=== PATIENT | male | born 1950 | race Caucasian/White ===

== ENCOUNTER 2022-07-20 23:20 | Observation (INO) | payer OTHER ==
[~2022-07-20] VITALS: Ht 185.4 cm; Wt 94.5 kg
[2022-07-21 13:40] LABS: BASOPHILS ABSOLUTE AUTO 0.02 K/mm3 (0.00-0.23); BASOPHILS PERCENT AUTO 0 % (0-2); EOSINOPHILS ABSOLUTE AUTO 0.06 K/mm3 (0.00-0.68); EOSINOPHILS PERCENT AUTO 1 % (0-6); Hematocrit 39.6 % (37.0-53.0); Hemoglobin 13.1 g/dL (13.5-17.5); IMMATURE GRAN ABSOLUTE AUTO 0.03 K/mm3 (0.00-0.10); IMMATURE GRAN PERCENT AUTO 0 % (0-1); LYMPHOCYTES ABSOLUTE AUTO 2.06 K/mm3 (0.84-5.20); LYMPHOCYTES PERCENT AUTO 20 % (21-46); MONOCYTES ABSOLUTE AUTO 1.07 K/mm3 (0.16-1.47); MONOCYTES PERCENT AUTO 10 % (4-13); Mean Corpuscular HGB 30.2 pg (26.0-34.0); Mean Corpuscular HGB Conc 33.1 g/dL (31.5-36.5); Mean Corpuscular Volume 91 fL (80-100); Mean Platelet Volume 10.1 fL (9.1-12.4); NEUTROPHILS ABSOLUTE AUTO 7.04 K/mm3 (1.96-9.15); NEUTROPHILS PERCENT AUTO 69 % (41-73); Platelet Count 249 K/mm3 (150-400); RDW Coefficient Variation 13.1 % (11.7-14.2); RDW Standard Deviation 44.4 fL (35.1-46.3); Red Blood Cell Count 4.34 M/mm3 (4.30-5.90); White Blood Cell Count 10.28 K/mm3 (4.00-11.30)
--- NOTE | 2022-07-21 18:42 | NUR ---
Received patient at 1530. Pt axox4. Pt states his pain is not as bad as it was yesterday but seem to be getting better. Admission completed on patient. Will continue to monitor patient. Vital signs are stable, but a little high because of the transfer and pain.
--- NOTE | 2022-07-22 04:41 | NUR ---
SPINDLE SETTER SUMMARY NO ACUTE EVENTS. PT A/OX4. REPORTS PAIN AT REST IS 3-4 CONSISTANTLY AND INCREASED WITH SLIGHT MOVEMENT. ON BEDREST T/O THE NIGHT. RCVD SCHEDULED PAIN MEDS AND 1X DOSE OF PO PRN PAIN MED. REPORTS NUMBNESS/COMPLETE LOSS OF FEELING IN LOWER RIGHT FOOT. ON CONT PULSE OX; SOME BRIEF EPISODES OF DROPPING DONW TO UPPER 80'S. ABLE TO MAKE NEEDS KNOWN; CALL LIGHT IN REACH.
--- NOTE | 2022-07-22 17:37 | NUR ---
SHIFT SUMMARY- PT VSS. PT PAIN TOLERATABLE BUT PRESENT. PT REPORTS SOME IMPROVEMENT WITH PAIN, WORKED WITH PT. DRESSING CHANGE AT SPINAL INCISION, SEROUS FLUID ON GAUZE PAD. FAMILY AT BEDSIDE. APPETITE GOOD. WILL CONTINUE TO MONITOR. CALL LIGHT IN REACH.
--- NOTE | 2022-07-22 17:44 | NUR ---
PT ALSEEP WHEN I ATTEMPT TO MAKE A VISIT. RN REPORTS PT PAIN HAS BEEN BETTER MANAGED THIS AFTERNOON, PALLIATIVE CARE WILL CONT TO FOLLOW AND PROVIDE SUPPORT.
--- NOTE | 2022-07-23 05:07 | NUR ---
EVENTS AND PROMOTIONS ASSISTANT SUMMARY: A&Ox4. PLEASANT AND COOPERATIVE WITH CARE. CALLS APPROPRIATELY AND ABLE TO ADVOCATE NEEDS EFFECTIVELY. PAIN MANAGED WITH ROUTINE DILAUDID, APAP AND NAPROXEN. DID NOT REQUIRE ANY IV MEDS FOR BT PAIN. LAST BM PRIOR TO SURGERY; SENNA ADMINISTERED WITH HS MEDS. VOIDING WITHOUT DIFFICULTY AND REPORTS INCREASED SENSATION IN LEs; STILL WEAKER ON RLE THAN LLE. ANTICIPATE DC HOME TOMORROW, IF PAIN MANAGED WITH PO MEDS ONLY. NO ACUTE CONCERNS T/O THE NIGHT. WILL REPORT TO ONCOMING RN.
--- NOTE | 2022-07-23 17:25 | NUR ---
Received Report from ongoing nurse. Pt axox4. Pt is having constant stabbing pain in the lower back. making his rounds at bedside. MR of lumbar with no contrast placed. MRI results received by physician will be transferring patient to [facility] in [place]. Gave report to nurse MARI Bello. Pt will go to surgery right away and will go to bed 30 once done. Pt and made aware. EMS will arrive at 1800.
== END 2022-07-23 18:30 | disposition short-term general hospital (02) ==
LOC: ER 23:20 → ERHOLD 23:21 → MEDS 07-21 15:25
PROVIDERS: Nurse Practitioner Acute Care; ADMIT Internal Medicine
DX: G89.18 Other acute postprocedural pain (principal); M54.89 Other dorsalgia; Z98.890 Other specified postprocedural states; Z88.5 Allergy status to narcotic agent
CPT/HCPCS: 72148; 85025; 94762; 96374; 96375; 96376; 97162; 97530; 99285; A9270; G0378; J1170; J1885; J3010; J7120

== ENCOUNTER → 2024-09-22 | Outpatient (CLI) | payer OTHER | LOC: PLD 07:45 → LAB 07:45 → LAB SHORT 07:45 | DX: D22.5 Melanocytic nevi of trunk (principal) | CPT/HCPCS: 88305 ==